=== PATIENT | male | born 1945 | race Caucasian/White ===

== ENCOUNTER 2017-12-14 05:56 | Emergency (ER) | payer MEDICARE, OTHER ==
[~2017-12-14] VITALS: Ht 188 cm; Wt 104.3 kg
== END 2017-12-14 06:10 | disposition home or self-care (01) ==
LOC: ER 05:56
DX: M79.641 Pain in right hand (principal); G56.01 Carpal tunnel syndrome, right upper limb; M10.9 Gout, unspecified; Z85.89 Personal history of malignant neoplasm of other organs and systems
CPT/HCPCS: 99283

== ENCOUNTER 2018-08-02 11:17 | Emergency (ER) | payer MEDICARE, OTHER ==
[~2018-08-02] VITALS: Ht 188 cm; Wt 104.3 kg
[2018-08-02] MEDS ORDERED: TETANUS/DIPHTHERIA TOX ADULT 0.5 ML SYR IM ONE (12:00)
--- NOTE | 2018-08-02 13:14 | Diagnostic Imaging Report ---
CT BRAIN WO, CT CERVICAL SPINE WO, CT MAXIO FAC/PARANAS WO HISTORY: Fall, hit head COMPARISON: None. TECHNIQUE: Axial noncontrast CT images were obtained through the head, face, and cervical spine. Coronal and sagittal reconstructions obtained from the axial data. One or more of the following dose reduction techniques were used: Automated exposure control, adjustment of the mA and/or kV according to patient size, and/or utilization of iterative reconstruction technique. DISCUSSION: HEAD CT: Scalp/Skull: There is a midline frontal scalp hematoma. No acute calvarial fracture is seen. Brain sulci: Mildly prominent. Ventricles: Compensatory dilatation. Extra-axial spaces: No masses or fluid collections. Carotid siphon and vertebral artery calcifications are present. Parenchyma: Mild periventricular white matter hypodensities are likely chronic microvascular ischemic changes. Otherwise, no masses, hemorrhage, or large vascular territory acute infarct. Dural sinuses: No abnormal densities. Sellar/Suprasellar region: Intact. Skull base: Intact. Incidental findings: Wall down left mastoidectomy changes are present. Nonspecific soft tissue density along the medial mastoidectomy defect measures up to 2 cm in transverse dimension. There is associated focal dehiscence into the left posterior fossa. FACIAL CT: Midline frontal scalp hematoma is again noted. Nondisplaced right nasal bone fracture is age indeterminate. Otherwise, no additional acute fracture is seen. The orbits are intact. Intraorbital contents are grossly unremarkable. Moderate left and mild right maxillary sinus mucosal thickening is present. A small amount of fluid layers in both maxillary sinuses; correlate for acute sinusitis. Scattered dental caries are present. CERVICAL SPINE CT: Mild bone demineralization limits evaluation. Cervical lordosis is slightly straightened. There is no significant scoliosis. No definite acute fracture or compression deformity is seen. The craniocervical junction is intact. No gross spinal canal masses are seen. The paravertebral and paraspinal soft tissues are unremarkable. Mild to moderate multilevel spondylotic changes are present. Multilevel, large bulky bridging osteophytes are present with relatively preserved disc spaces; this is suggestive of superimposed diffuse idiopathic skeletal hyperostosis. Multilevel bilateral facet arthrosis is most prominent at C4-C5. The C4-C5 facet joints are fused with associated grade 1 anterolisthesis of C4 on C5. Mild atlantoaxial arthrosis is present as well. Incidental findings: A few small calcifications in the right thyroid lobe are nonspecific. The submandibular glands appear atrophic. Mild bilateral carotid bulb calcification is present. IMPRESSION: Head CT: 1. No acute intracranial abnormalities. 2. Mild supratentorial chronic microvascular ischemic change. Mild generalized cerebral volume loss. 3. Wall down left mastoidectomy changes. Nonspecific focal soft tissue density within the medial mastoidectomy defect with focal dehiscence into the left posterior fossa. Maxillofacial CT: 1. Age indeterminate, nondisplaced right nasal bone fracture. 2. Otherwise, no acute osseous abnormalities in the face. Cervical Spine CT: 1. No acute osseous abnormalities in the cervical spine. 2. Mild to moderate multilevel spondylosis with superimposed diffuse idiopathic skeletal hyperostosis. 3. Multilevel bilateral facet arthrosis, most prominent at C4-C5. The C4-C5 facet joints are fused with associated grade 1 anterolisthesis of C4 on C5. Signed by: Dr. Jann De La Cruz M.D. on 08/02/2018 1:11 PM
[2018-08-02] MEDS ORDERED: HYDROMORPHONE 2MG/ML 2 MG/ML ML IM NR ×2 (14:45→18:45)
== END 2018-08-02 13:45 | disposition home or self-care (01) ==
LOC: ER 11:17
DX: S00.83XA Contusion of other part of head, initial encounter (principal); S60.511A Abrasion of right hand, initial encounter; S80.212A Abrasion, left knee, initial encounter; W01.0XXA Fall on same level from slipping, tripping and stumbling without subsequent striking against object, initial encounter; Y92.511 Restaurant or cafe as the place of occurrence of the external cause; M10.9 Gout, unspecified; Z85.830 Personal history of malignant neoplasm of bone
CPT/HCPCS: 70450; 70486; 72125; 90471; 90714; 99283; J1170